=== PATIENT | female | born 1950 | race Caucasian/White ===

== ENCOUNTER 2019-04-07 10:58 | Inpatient (IN) | payer OTHER ==
[~2019-04-07] VITALS: Ht 170.2 cm; Wt 108.9 kg
[2019-04-07] MEDS ORDERED: PROTONIX40 M1 PO (12:11)
[2019-04-07] MEDS ORDERED: CLARITIN10 M1 PO (12:11)
[2019-04-07] MEDS ORDERED: TESSALON PERLE100 M1 PO (12:11)
[2019-04-07] MEDS ORDERED: NEXIUM40 M1 PO (12:11)
[2019-04-07] MEDS ORDERED: MAGNESIUM400 MG PO (12:12)
[2019-04-07] MEDS ORDERED: CIDAFLEX TABLE1 EACH PO (12:12)
[2019-04-07] MEDS ORDERED: MACRODANTIN50 MG PO (12:12)
[2019-04-07] MEDS ORDERED: DILTIAZEM 24HR180 MG PO (12:13)
[2019-04-07] MEDS ORDERED: AZELASTINE137 MCG/0. NASAL (12:13)
[2019-04-07] MEDS ORDERED: IPRATROPIUM BRO15 ML NASAL (12:14)
== END 2019-04-20 11:36 | disposition home or self-care (01) | DRG 300 ==
LOC: ER 10:58 → MEDI 17:16 → SEC-K 17:16 → MEDI 21:31 → MEDJ 04-12 21:07
PROVIDERS: ADMIT Internal Medicine
PROC: B44FZZZ Ultrasonography of Right Lower Extremity Arteries (ICD-10-PCS; principal; 2019-04-07)
DX: I83.12 Varicose veins of left lower extremity with inflammation (principal); L03.115 Cellulitis of right lower limb; I83.11 Varicose veins of right lower extremity with inflammation; B96.89 Other specified bacterial agents as the cause of diseases classified elsewhere; I10 Essential (primary) hypertension; E66.09 Other obesity due to excess calories; K21.9 Gastro-esophageal reflux disease without esophagitis; I35.8 Other nonrheumatic aortic valve disorders; K29.40 Chronic atrophic gastritis without bleeding